=== PATIENT | male | born 1965 | race Caucasian/White ===

== ENCOUNTER 2020-07-17 08:05 | Outpatient (CLI) | payer SELFPAY ==
[2020-07-17 15:11] LABS: BILIRUBIN,URINE NEGATIVE (NEGATIVE); GLUCOSE, URINE (UA) NEGATIVE (NEGATIVE); KETONES,URINE (UA) NEGATIVE (NEGATIVE); LEUKOCYTE ESTERASE, URINE NEGATIVE (NEGATIVE); NITRITE,URINE NEGATIVE (NEGATIVE); OCCULT BLOOD,URINE NEGATIVE (NEGATIVE); PH,URINE 5.5 PH (5.0-7.5); PROTEIN,URINE NEGATIVE (NEGATIVE); UROBILINOGEN,URINE 0.2 (NORMAL) E.U./dL (NORMAL)
[2020-07-17 15:46] LABS: CLARITY,URINE CLEAR (CLEAR)
[2020-07-17 16:31] LABS: BACTERIA,URINE None Seen /HPF (None Seen); RBC,URINE None Seen /HPF (0-5); SQUAMOUS EPITHELIAL CELL,UR NONE SEEN (<= Few)
== END 2020-07-17 23:59 | disposition home or self-care (01) ==
LOC: LAB.R 08:05
PROVIDERS: ATTEND Emergency Medicine
DX: N45.1 Epididymitis (principal); R31.9 Hematuria, unspecified
CPT/HCPCS: 81001; 87086; 87491; 87591; 87661